=== PATIENT | male | born 1985 | race Caucasian/White ===

== ENCOUNTER 2018-05-11 02:56 | Emergency (ER) | payer SELFPAY ==
[~2018-05-11] VITALS: Ht 170.2 cm; Wt 64.0 kg
[2018-05-11 03:01] VITALS: BP 146/82; PULSE 109; RESP 18; TEMP 98; O2SAT 99
[2018-05-11] MEDS ORDERED: SODIUM CHLORIDE 0.9% FLUSH 10 ML FLUSH IVF PRN (03:45)
--- NOTE | 2018-05-11 03:54 | PD ---
HPI Chief Complaint: Chest Pain Time Seen by Provider: 03:15 Travel History International Travel<30 days: No Contact w/Intl Traveler<30days: No Traveled to known affect area: No History of Present Illness HPI 31-year-old male presents emergency department with chest discomfort the left side of his chest as well as palpitations. Patient states that he did use cocaine several hours prior to arrival. No shortness of breath no abdominal pain no nausea vomiting diarrhea constipation head injury neck injury back injury. He is accompanied by his mother. No early history of heart disease, the patient is a smoker. No history of high blood pressure high cholesterol. States symptoms have resolved now. Left side of the chest, no radiation, associated signs symptoms in context as above. PFSH Past Medical History Medical History: Denies Significant Hx Diminished Hearing: No Past Surgical History Surgical History: No Previous Surgery Social History Alcohol Use: Yes (FREQUENT ) Tobacco Use: Yes (EVERYDAY ) Substance Use: Yes (COCAINE, LAST USED 05/10/18) Allergies-Medications (Allergen,Severity, Reaction): Coded Allergies: No Known Allergies (Unverified , 05/11/18) Reported Meds & Prescriptions Reported Meds & Active Scripts Active No Active Prescriptions or Reported Medications Review of Systems Except as stated in HPI: all other systems reviewed are Neg Physical Exam Narrative GENERAL: Well-developed well-nourished pleasant male in no obvious distress peer SKIN: Focused skin assessment warm/dry. HEAD: Atraumatic. Normocephalic. EYES: Pupils equal and round. No scleral icterus. No injection or drainage. ENT: No nasal bleeding or discharge. Mucous membranes pink and moist. NECK: Trachea midline. No JVD. CARDIOVASCULAR: Regular rate and rhythm. No murmur appreciated. 2+ bilateral pulses in all 4 extremity's, no murmurs gallops or rubs. RESPIRATORY: No accessory muscle use. Clear to auscultation. Breath sounds equal bilaterally. GASTROINTESTINAL: Abdomen soft, non-tender, nondistended. Hepatic and splenic margins not palpable. MUSCULOSKELETAL: No obvious deformities. No clubbing. No cyanosis. No edema. NEUROLOGICAL: Awake and alert. No obvious cranial nerve deficits. Motor grossly within normal limits. Normal speech. PSYCHIATRIC: Appropriate mood and affect; insight and judgment normal. Data Data Last Documented VS Vital Signs Date Time Temp Pulse Resp B/P (MAP) Pulse Ox O2 Delivery O2 Flow Rate FiO2 05/11/18 04:35 05/11/18 03:01 98.0 109 18 99 Orders Orders Ckmb (Isoenzyme) Profile (05/11/18 03:38) Complete Blood Count With Diff (05/11/18 03:38) Comprehensive Metabolic Panel (05/11/18 03:38) Magnesium (Mg) (05/11/18 03:38) Prothrombin Time / Inr (Pt) (05/11/18 03:38) Act Partial Throm Time (Ptt) (05/11/18 03:38) Troponin I (05/11/18 03:38) Chest, Single Ap (05/11/18 03:38) Ecg Monitoring (05/11/18 03:38) Bilateral Bp Monitoring (05/11/18 03:38) Iv Access Insert/Monitor (05/11/18 03:38) Oximetry (05/11/18 03:38) Oxygen Administration (05/11/18 03:38) Sodium Chloride 0.9% Flush (Ns Flush) (05/11/18 03:45) CKMB (05/11/18 03:42) CKMB% (05/11/18 03:42) Ed Discharge Order (05/11/18 04:32) Electrocardiogram (05/11/18 02:10) Labs Laboratory Tests Test 05/11/18 03:42 White Blood Count 13.4 TH/MM3 Red Blood Count 4.91 MIL/MM3 Hemoglobin 15.2 GM/DL Hematocrit 43.5 % Mean Corpuscular Volume 88.6 FL Mean Corpuscular Hemoglobin 30.9 PG Mean Corpuscular Hemoglobin Concent 34.9 % Red Cell Distribution Width 12.5 % Platelet Count 299 TH/MM3 Mean Platelet Volume 8.8 FL Neutrophils (%) (Auto) 67.8 % Lymphocytes (%) (Auto) 22.0 % Monocytes (%) (Auto) 9.4 % Eosinophils (%) (Auto) 0.1 % Basophils (%) (Auto) 0.7 % Neutrophils # (Auto) 9.1 TH/MM3 Lymphocytes # (Auto) 2.9 TH/MM3 Monocytes # (Auto) 1.3 TH/MM3 Eosinophils # (Auto) 0.0 TH/MM3 Basophils # (Auto) 0.1 TH/MM3 CBC Comment DIFF FINAL Differential Comment Prothrombin Time 10.8 SEC Prothromb Time International Ratio 1.1 RATIO Activated Partial Thromboplast Time 26.8 SEC Blood Urea Nitrogen 11 MG/DL Creatinine 1.23 MG/DL Random Glucose 105 MG/DL Total Protein 8.6 GM/DL Albumin 4.8 GM/DL Calcium Level 9.7 MG/DL Magnesium Level 2.0 MG/DL Alkaline Phosphatase 89 U/L Aspartate Amino Transf (AST/SGOT) 18 U/L Alanine Aminotransferase (ALT/SGPT) 25 U/L Total Bilirubin 0.8 MG/DL Sodium Level 140 MEQ/L Potassium Level 3.5 MEQ/L Chloride Level 106 MEQ/L Carbon Dioxide Level 19.4 MEQ/L Anion Gap 15 MEQ/L Estimat Glomerular Filtration Rate 68 ML/MIN Total Creatine Kinase 137 U/L Creatine Kinase MB 0.6 NG/ML Troponin I LESS THAN 0.02 NG/ML MDM Medical Decision Making Medical Screen Exam Complete: Yes Emergency Medical Condition: Yes Differential Diagnosis ACS unlikely, DE unlikely, medication reaction, cocaine abuse, cigarette smoker , GERD, reflux, pneumonia. Narrative Course Patient room to the emergency department, he appears well in obvious distress, EKG nonischemic, troponin negative, chest x-ray negative. Discussed with him smoking and cocaine cessation as both of these can lead to heart attack strokes. As well as cancer risk. He verbalized understanding and agreement. Discussed need follow-up with a primary care physician his daily health clinic for checkup. Discussed returning to criteria at this time is stable for discharge. Diagnosis Primary Impression: Chest pain with low risk for cardiac etiology Referrals: [facility] Patient Instructions: Chest Pain (DC), Cocaine Abuse (DC), General Instructions , How to Stop Smoking (DC) Additional Instructions: Follow-up with the [facility] or your regular physician. Scripts No Active Prescriptions or Reported Meds Disposition: 01 DISCHARGE HOME Condition: Stable Freddie Donahue MD May 11, 2018 03:54
[2018-05-11 03:56] LABS: AUTOMATED NEUTROPHIL # 9.1 TH/MM3 (1.8-7.7); BASOPHIL # 0.1 TH/MM3 (0-0.2); BASOPHIL % 0.7 % (0.0-2.0); EOSINOPHIL % 0.1 % (0.0-4.0); HEMATOCRIT 43.5 % (39.0-51.0); HEMOGLOBIN 15.2 GM/DL (13.0-17.0); LYMPHOCYTE # 2.9 TH/MM3 (1.0-4.8); MEAN CELL VOLUME 88.6 FL (80.0-100.0); MEAN CORPUSCULAR HEMOGLOBIN 30.9 PG (27.0-34.0); MEAN CORPUSCULAR HGB CONC 34.9 % (32.0-36.0); MEAN PLATELET VOLUME 8.8 FL (7.0-11.0); MONO % 9.4 % (0.0-8.0); MONOCYTE # 1.3 TH/MM3 (0-0.9); NEUT % 67.8 % (16.0-70.0); PLATELET COUNT 299 TH/MM3 (150-450); RED BLOOD COUNT 4.91 MIL/MM3 (4.50-5.90); RED CELL DISTRIBUTION WIDTH 12.5 % (11.6-17.2); WHITE BLOOD COUNT 13.4 TH/MM3 (4.0-11.0)
[2018-05-11 04:06] LABS: ALBUMIN 4.8 GM/DL (3.4-5.0); ALT (GPT) 25 U/L (12-78); AST (GOT) 18 U/L (15-37); BICARBONATE 19.4 MEQ/L (21.0-32.0); BLOOD UREA NITROGEN 11 MG/DL (7-18); CALCIUM 9.7 MG/DL (8.5-10.1); CHLORIDE 106 MEQ/L (98-107); CREATININE 1.23 MG/DL (0.60-1.30); GLOMERULAR FILTRATION RATE 68 ML/MIN (>89); GLUCOSE,RANDOM 105 MG/DL (74-106); INTERNATIONAL NORMALIZED RATIO 1.1 RATIO; PROTHROMBIN TIME - PATIENT 10.8 SEC (9.8-11.6); SODIUM (NA) 140 MEQ/L (136-145)
[2018-05-11 04:10] LABS: ALKALINE PHOSPHATASE 89 U/L (45-117); TOTAL BILIRUBIN ADULT 0.8 MG/DL (0.2-1.0); TOTAL PROTEIN 8.6 GM/DL (6.4-8.2); TROPONIN I LESS THAN 0.02 NG/ML (0.02-0.05)
--- NOTE | 2018-05-11 05:06 | RADRPT ---
EXAM DATE: 05/11/2018 4:01 AM EDT AGE/SEX: 32 years / Male INDICATIONS: Left sided chest pain for 6 hours CLINICAL DATA: This is the patient's initial encounter. Patient reports that signs and symptoms have been present for 1 day and indicates a pain score of 5/10. MEDICAL/SURGICAL HISTORY: None. None. COMPARISON: No prior exams available for comparison. FINDINGS: A single AP view of the chest demonstrates the lungs to be symmetrically aerated without evidence of mass, infiltrate or effusion. The cardiomediastinal contours are unremarkable. Osseous structures a re intact. CONCLUSION: No acute cardiopulmonary disease Electronically signed by: Claudio Velez MD 05/11/2018 5:05 AM EDT
--- NOTE | 2018-05-11 12:41 | EKG ---
Date Performed: 05/11/2018 Time Performed: 02:10:08 PTAGE: 32 years EKG: Sinus rhythm WITH SINUS ARRHYTHMIA NORMAL ECG NO PREVIOUS TRACING DOCTOR: Wilfredo Bassett Interpretating Date/Time 05/11/2018 12:37:52
== END 2018-05-11 04:45 | disposition home or self-care (01) ==
LOC: NEPE 02:56
DX: R07.89 Other chest pain (principal); R00.2 Palpitations; I49.9 Cardiac arrhythmia, unspecified; F14.90 Cocaine use, unspecified, uncomplicated; Z72.0 Tobacco use
CPT/HCPCS: 71045; 80053; 82550; 82552; 83735; 84484; 85025; 85610; 85730; 93005; 99284